=== PATIENT | female | born 1960 | race Native Hawaiian/Other Pacific Islander ===

== ENCOUNTER 2017-10-24 08:28 | Outpatient (CLI) | payer OTHER | END 2017-10-24 22:04 | disposition home or self-care (01) | LOC: US 08:28 | DX: R07.89 Other chest pain (principal); R09.89 Other specified symptoms and signs involving the circulatory and respiratory systems; Z87.891 Personal history of nicotine dependence | CPT/HCPCS: A9500 ==

== ENCOUNTER 2018-12-29 11:44 | Outpatient (CLI) | payer OTHER | END 2018-12-29 22:49 | disposition home or self-care (01) | LOC: RAD 11:44 | DX: Z01.818 Encounter for other preprocedural examination (principal) ==